=== PATIENT | female | born 1965 | race Caucasian/White ===

== ENCOUNTER 2018-07-16 05:51 | Day surgery (SDC) | payer SELFPAY ==
[~2018-07-16] VITALS: Ht 175.3 cm; Wt 72.0 kg
[2018-07-16 06:39] VITALS: BP 98/64
[2018-07-16] MEDS ORDERED: SODIUM CHLORIDE 0.9% 1,000 ML IV SCH (06:42)
[2018-07-16] MEDS ORDERED: VANCOMYCIN PMX 1GM/200ML 200 ML IV ONE (07:00)
[2018-07-16] MEDS ORDERED: LIDOCAINE/PF 1%, 30ML ONE (07:15)
[2018-07-16] MEDS ORDERED: FENTANYL PF 100 MCG/2ML ONE (07:32)
[2018-07-16] MEDS ORDERED: MIDAZOLAM 1 MG/ML, 5ML ONE (07:33)
[2018-07-16] MEDS ORDERED: NALOXONE 1 MG/ML, 2ML ONE (07:33)
[2018-07-16] MEDS ORDERED: FLUMAZENIL 0.1 MG/1 ML, 5ML ONE (07:33)
== END 2018-07-16 10:20 | disposition home or self-care (01) ==
LOC: OUT 05:51
PROVIDERS: ATTEND Internal Medicine Hematology & Oncology
DX: Z45.2 Encounter for adjustment and management of vascular access device (principal); C18.9 Malignant neoplasm of colon, unspecified; E03.9 Hypothyroidism, unspecified; Z88.0 Allergy status to penicillin; Z88.8 Allergy status to other drugs, medicaments and biological substances; Z79.899 Other long term (current) drug therapy; Z79.4 Long term (current) use of insulin; Z98.890 Other specified postprocedural states
CPT/HCPCS: 36561; 76937; 77001; 99156; 99157; C1788; C1894; J1642; J2250; J3010; J3370; J3490; J7030; J2310

== ENCOUNTER 2018-12-21 05:40 | Emergency (ER) | payer OTHER ==
[~2018-12-21] VITALS: Ht 175.3 cm; Wt 75.1 kg
[~2018-12-21 05:40] MED LIST: ACET650S21 PO; FERR325T5 PO; LEVO75TA PO; OMEP40CA6 PO; PRED5TAB PO
[2018-12-21] MEDS ORDERED: MORPHINE SULFATE 4 MG/ML, 1ML ONE (06:47)
[2018-12-21] MEDS ORDERED: FAMOTIDINE 20 MG/2 ML ONE (06:47)
[2018-12-21] MEDS ORDERED: METOCLOPRAMIDE 5 MG/ML, 2ML ONE (06:47)
[2018-12-21] MEDS: SODIUM CHLORIDE 0.9% 1,000ML IVBOLUS ONE (06:50)
[2018-12-21] MEDS: METOCLOPRAMIDE 5 MG/ML, 2ML IVPush ONE (06:51)
[2018-12-21] MEDS: FAMOTIDINE 20 MG/2 ML IVP ONE (06:51)
[2018-12-21] MEDS: MORPHINE SULFATE 4 MG/ML, 1ML IVPush PRN (06:51)
[2018-12-21] MEDS ORDERED: INSU100C SQ-INSULIN (06:56)
[2018-12-21 07:08] LABS: BASOPHILS # (AUTO) 0.02 x10^3/uL (0-0.1); BASOPHILS % (AUTO) 0 % (0-1); EOSINOPHILS % (AUTO) 0 % (1-7); LYMPHOCYTES # (AUTO) 0.69 x10^3/uL (1-3.4); LYMPHOCYTES % (AUTO) 10 % (22-44); MD NO; MEAN CORPUSCULAR HEMOGLOBIN 33.2 pg (27.0-34.8); MEAN CORPUSCULAR HGB CONC 33.2 g/dL (32.4-35.8); MEAN CORPUSCULAR VOLUME 99.8 fL (80-100); MEAN PLATELET VOLUME 6.3 fL (7.4-10.4); MONOCYTES # (AUTO) 0.72 x10^3/uL (0.2-0.8); MONOCYTES % (AUTO) 11 % (2-9); NEUTROPHILS # (AUTO) 5.42 x10^3/uL (1.8-6.8); NEUTROPHILS % (AUTO) 79 % (42-75); PLATELET COUNT 183 x10^3/uL (130-400); RED BLOOD COUNT 4.32 x10^6/uL (3.82-5.3); RED CELL DISTRIBUTION WIDTH 17.5 % (9.6-15.2)
[2018-12-21 07:17] LABS: ALBUMIN 4.2 g/dL (3.4-5.0); ANION GAP 9 mmol/L (5-15); CALCIUM 9.4 mg/dL (8.5-10.1); CHLORIDE 103 mmol/L (98-107)
[2018-12-21 07:24] LABS: ALANINE AMINOTRANSFERASE 44 U/L (12-78); ALKALINE PHOSPHATASE 162 U/L (45-117); BILIRUBIN,TOTAL 0.9 mg/dL (0.2-1.0); TOTAL PROTEIN 8.2 g/dL (6.4-8.2)
[2018-12-21] MEDS ORDERED: OMNIPAQUE 350 MG/ML, 100ML BOTTLE ONE (08:06)
[2018-12-21 08:16] LABS: ACETONE, SERUM Trace (10mg/dL) mg/dL (Negative)
[2018-12-21 08:58] LABS: MICROSCOPIC INDICATED
[2018-12-21 09:10] VITALS: BP 124/58
[2018-12-21 09:10] LABS: CULTURE INDICATED? NO
== END 2018-12-21 09:21 | disposition home or self-care (01) ==
LOC: ED 08:45
DX: K29.00 Acute gastritis without bleeding (principal); E10.9 Type 1 diabetes mellitus without complications; E03.9 Hypothyroidism, unspecified; K21.9 Gastro-esophageal reflux disease without esophagitis; Z85.038 Personal history of other malignant neoplasm of large intestine
CPT/HCPCS: 36415; 74177; 80053; 81001; 82010; 82800; 82962; 83690; 85025; 96361; 96374; 96375; 99284; J2765; J3490; J7030; Q9967

== ENCOUNTER 2019-08-02 13:37 | Outpatient (CLI) ==
[~2019-08-02 13:37] MED LIST changes: +INSU100C SQ-INSULIN; +LIDOCAINE 1%, 10ML ONE; +OMEP40CA42 PO; -OMEP40CA6 PO
== END 2019-08-02 23:59 | disposition home or self-care (01) ==
LOC: RAD 13:37
PROVIDERS: ATTEND Internal Medicine Hematology & Oncology
DX: C18.9 Malignant neoplasm of colon, unspecified (principal); R18.8 Other ascites; C78.7 Secondary malignant neoplasm of liver and intrahepatic bile duct; K80.70 Calculus of gallbladder and bile duct without cholecystitis without obstruction; R16.1 Splenomegaly, not elsewhere classified; K21.9 Gastro-esophageal reflux disease without esophagitis; E03.9 Hypothyroidism, unspecified; E11.9 Type 2 diabetes mellitus without complications
CPT/HCPCS: 49083; 76700; J3490